=== PATIENT | female | born 1945 | race Caucasian/White ===

== ENCOUNTER → 2017-01-13 | Outpatient (CLI) | payer OTHER | LOC: BHLMT 14:30 | PROVIDERS: ATTEND Internal Medicine Cardiovascular Disease | DX: R07.9 Chest pain, unspecified (principal); R06.02 Shortness of breath; R53.83 Other fatigue; E78.5 Hyperlipidemia, unspecified; I10 Essential (primary) hypertension; G47.30 Sleep apnea, unspecified; I44.7 Left bundle-branch block, unspecified; I35.1 Nonrheumatic aortic (valve) insufficiency; I34.0 Nonrheumatic mitral (valve) insufficiency | CPT/HCPCS: 93005-PO ==

== ENCOUNTER → 2017-02-11 | Outpatient (CLI) | payer OTHER | LOC: BHLMT 14:00 | PROVIDERS: ATTEND Internal Medicine Cardiovascular Disease | DX: R07.9 Chest pain, unspecified (principal) | CPT/HCPCS: 78452; 93017; A9500; J2785 ==

== ENCOUNTER → 2017-08-21 | Outpatient (CLI) | payer OTHER | LOC: BHLMT 10:00 | PROVIDERS: ATTEND Internal Medicine Cardiovascular Disease | DX: R06.02 Shortness of breath (principal); R07.9 Chest pain, unspecified; R60.9 Edema, unspecified | CPT/HCPCS: 93306-PO ==

== ENCOUNTER 2017-09-09 08:50 | Day surgery (SDC) | payer OTHER ==
[2017-09-09] MEDS ORDERED: NS 500 ML IV ONE (08:56)
[2017-09-09] MEDS ORDERED: MIDAZOLAM 2 MG/2 ML VIAL IVP ONE (08:56)
[2017-09-09] MEDS ORDERED: BENZOCAINE UNIT DOSE SPRAY HURRICAINE MM ONE (08:56)
[2017-09-09] MEDS ORDERED: fentaNYL 100 MCG/2 ML INJ IVP ONE (08:56)
[2017-09-09] MEDS ORDERED: diphenhydrAMINE 25 MG CAP PO ONE (08:57)
[2017-09-09] MEDS ORDERED: FAMOTIDINE 20 MG TAB PO ONE (08:57)
[2017-09-09] MEDS ORDERED: ASPIRIN EC 325 MG TAB PO ONE (08:57)
[2017-09-09] MEDS ORDERED: NS 1,000 ML IV ONE (08:57)
[2017-09-09] MEDS ORDERED: DIAZEPAM 5 MG TAB PO ONE (08:57)
--- NOTE | 2017-09-09 09:09 | PDHPUP ---
History & Physical Update H&P update statement: This history and physical update is based on an assessment of the patient which was completed after admission or registration (within 24 hours), but prior to the surgery/procedure. H&P update: H&P reviewed & patient examined, no change in patient's condition since H&P completed
--- NOTE | 2017-09-09 09:09 | PDPROPOC ---
Sedation Plan of Care Sedation Plan of Care: vital signs stable, mental status noted, patient educated of risks, benefits, alternatives, patient can tolerate sedation ASA Classification: ASA 2 Planned drugs: fentanyl, midazolam Mallampati Score: Class 1 Mallampati Reference Image: Patient passed 3-3-2 rule?: Yes
--- NOTE | 2017-09-09 09:14 | CPEKG ---
Heart Rate: 59 RR Interval: 1017 P-R Interval: 196 QRSD Interval: 112 QT Interval: 496 QTC Interval: 492 P [place]: 18 QRS [place]: -28 T Wave [place]: 49 EKG Severity - ABNORMAL ECG - EKG Impression: SINUS RHYTHM EKG Impression: NONSPECIFIC INTRAVENTRICULAR CONDUCTION DELAY EKG Impression: CONSIDER ANTERIOR INFARCT Electronically Signed By: Jacek Hermosillo 09-Sep-2017 10:37:38
[2017-09-09 09:35] LABS: PLATELET COUNT 282 10^3/uL (150-400)
[2017-09-09] MEDS ORDERED: ATROPINE SULFATE 1 MG/10 ML SYR ONE ×2 (09:41→14:00)
[2017-09-09 10:32] LABS: INR 1.22 (0.83-1.16); PROTIME(PATIENT) 15.6 SEC (12.0-15.0)
[2017-09-09] MEDS ORDERED: MIDAZOLAM 2 MG/2 ML VIAL ONE ×3 (10:59→11:35)
[2017-09-09] MEDS ORDERED: LIDOCAINE 1% 300 MG/30 ML SDV ONE (10:59)
[2017-09-09] MEDS ORDERED: fentaNYL 100 MCG/2 ML INJ ONE ×2 (10:59→11:22)
[2017-09-09] MEDS ORDERED: IOPAMIDOL (ISOVUE-370) 150 ML BTL IV ONE (10:59)
[2017-09-09] MEDS ORDERED: HEPARIN 10,000 UNIT/10 ML MDV (1,000 UNIT/ML) ONE (11:36)
[2017-09-09] MEDS ORDERED: VERAPAMIL 5 MG/2 ML VIAL ONE (11:36)
--- NOTE | 2017-09-09 12:12 | PDDXCAT ---
Diagnostic Cath Note - . 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.) - Procedure Access: right wrist Procedure: left heart catheterization, coronary angiography, left ventriculogram , right heart catheterization - Materials Left Heart Cath size: 5F Left Heart Cath materials: pigtail, other ([place] 4) Right Heart Cath size: 5F Right Heart Cath materials: PWP catheter - Findings-Left Heart Catheterization LM: Unobstructed LAD: Unobstructed LCX: Unobstructed RCA: Dominant: Unobstructed EDP: 11 mm of mercury LVEF: 55% with no demonstrable mitral regurgitation Wall motion: Normal - Findings-Right Heart Catheterization RA: 8 mm of mercury RV: 32/9 mm of mercury PA: 36/13 mm of mercury PAOP: 11 mm of mercury Complications: None Estimated blood loss: <50ml Closure method: TR Band Assessment: 1. Angiographically normal coronary arteries. 2. Ejection fraction 55% with normal filling pressures. 3. Normal right heart pressures. Plan: Review YOLANDE at cath conference. Continue aggressive medical therapy.
--- NOTE | 2017-09-09 16:48 | ECHO ---
[email or web address] [address] Main: [phone] Fax: Transesophageal Echocardiography Name: EMILY BAKER MR#: [id number] Study Date: 09/09/2017 Study Time: 11:13 AM Date of : 1945 Age: 71 year(s) Height: ( ) Weight: ( ) BSA: Gender: Female Examination: YOLANDE Indication: Mitral Valve Regurgitation Image Quality: Adequate Contrast: Requested by: Emmanuel Lozano Heart Rate: Rhythm: BP: / Procedure Staff Field Coil Winder: Christine Bonner [facility] Reading Physician: Emmanuel Lozano MD Requesting Provider: YOLANDE Exam Details Patient Consent: Risks, alternatives of procedure explained to patient, informed consent obtained. Conclusions: Ejection fraction 50% with global hypokinesis. Moderate mitral regurgitation. Mild aortic regurgitation. Measurements: Chambers Valvular Assessment AV/MV Valvular Assessment TV/PV Normal Normal Normal Name Value Range Name Value Range Name Value Range Visual EF: 50 % Additional Measurements: Findings: Left Ventricle: Normal size left ventricle. No LV hypertrophy. Low normal left ventricular systolic function. The ejection fraction is visually estimated to be 50 %. No regional wall motion abnormality. Unable to assess diastolic dysfunction. Right Ventricle: Normal size right ventricle. Normal RV function. Left Atrium: The left atrium is normal in size. Left Atrial Appendage: No thrombus in left appendage. Right Atrium: Patient: EMILY BAKER Study Date: 09/09/2017 Page 1 of 2 11:13 AM The right atrium is normal in size. Mitral Valve: The mitral valve is normal in appearance and function. Moderate mitral valve regurgitation is present. No mitral stenosis is present. Multiple jets of mitral regurgitation noted. Aortic Valve: The aortic valve is normal in appearance and function. Mild aortic valve regurgitation is present. No aortic valve stenosis is present. Tricuspid Valve: The tricuspid valve is normal in appearance and function. Mild tricuspid regurgitation is present. Pulmonic Valve: The pulmonic valve is normal in appearance and function. There is no pulmonic regurgitation seen. Aorta: The aorta is normal. Pericardium: No pericardial effusion. l1n (No Signature Object) Patient: EMILY BAKER Study Date: 09/09/2017 Page 2 of 2 11:13 AM [id number]
== END 2017-09-09 15:38 | disposition home or self-care (01) ==
LOC: FCATH 08:50
PROVIDERS: ATTEND Internal Medicine Interventional Cardiology
PROC: B2111ZZ Fluoroscopy of Multiple Coronary Arteries using Low Osmolar Contrast (ICD-10-PCS; principal; 2017-09-09)
PROC: B2151ZZ Fluoroscopy of Left Heart using Low Osmolar Contrast (ICD-10-PCS; principal; 2017-09-09)
PROC: 4A023N8 Measurement of Cardiac Sampling and Pressure, Bilateral, Percutaneous Approach (ICD-10-PCS; principal; 2017-09-09)
DX: I08.0 Rheumatic disorders of both mitral and aortic valves (principal); E78.5 Hyperlipidemia, unspecified; I10 Essential (primary) hypertension; I44.7 Left bundle-branch block, unspecified; E66.9 Obesity, unspecified; I26.99 Other pulmonary embolism without acute cor pulmonale; R06.02 Shortness of breath; G47.30 Sleep apnea, unspecified
CPT/HCPCS: C1769; J0461; J1644; J2250; J3010; Q9967

== ENCOUNTER → 2018-09-08 | Outpatient (CLI) | payer OTHER | LOC: BHFA 11:30 | PROVIDERS: ATTEND Internal Medicine Interventional Cardiology | DX: I35.1 Nonrheumatic aortic (valve) insufficiency (principal); I10 Essential (primary) hypertension; I34.0 Nonrheumatic mitral (valve) insufficiency; I44.7 Left bundle-branch block, unspecified ==